=== PATIENT | female | born 1985 | race Caucasian/White ===

== ENCOUNTER → 2024-03-13 12:01 | Outpatient (REF) | payer BC, SELFPAY ==
[2024-03-13 09:28] LABS: % Eosinophils 6.5 % (0-6); % Immature Granulocytes 0.3 % (0-0.5); % Lymphocytes 36.5 % (20.5-51.1); % Monocytes 3.8 % (1.7-9.3); % Neutrophils 51.9 % (42.2-75.2); Absolute Basophils 0.1 10^3/uL (0-0.2); Absolute Eosinophils 0.5 10^3/uL (0-0.7); Absolute Lymphocytes 2.6 10^3/uL (1.2-3.4); Absolute Monocytes 0.3 10^3/uL (0.1-0.6); Absolute Neutrophils 3.7 10^3/uL (1.4-6.5); Hematocrit 33.4 % (37.0-47.0); Hemoglobin 9.9 g/dL (12.0-16.0); Mean Corp Hgb Conc. 29.6 g/dL (33.0-37.0); Mean Corpuscular Hgb 20.7 pg (27.0-31.0); Mean Corpuscular Volume 69.9 fL (81.0-99.0); Mean Platelet Volume 10.2 fL (7.4-10.4); Nucleated Red Blood Cells % 0 %; Platelet Count 300 10^3/uL (130-400); Red Blood Cell Count 4.78 10^6/uL (4.20-5.40); Red Cell Dist. Width 18.7 % (11.5-14.5); White Blood Cell Count 7.1 10^3/uL (4.8-10.8)
== END ==
LOC: OIDL 12:01
PROVIDERS: ATTENDING PHYSICIAN Internal Medicine Hematology & Oncology
DX: D50.9 Iron deficiency anemia, unspecified (principal)
CPT/HCPCS: 85025

== ENCOUNTER → 2024-03-20 15:46 | Outpatient (REF) | payer BC, SELFPAY ==
[2024-03-20 09:43] LABS: % Basophils 1.1 % (0-2); % Eosinophils 5.9 % (0-6); % Immature Granulocytes 0.1 % (0-0.5); % Lymphocytes 35.2 % (20.5-51.1); % Neutrophils 53.7 % (42.2-75.2); Absolute Basophils 0.1 10^3/uL (0-0.2); Absolute Eosinophils 0.4 10^3/uL (0-0.7); Absolute Lymphocytes 2.6 10^3/uL (1.2-3.4); Absolute Monocytes 0.3 10^3/uL (0.1-0.6); Hematocrit 34.4 % (37.0-47.0); Hemoglobin 10.1 g/dL (12.0-16.0); Mean Corp Hgb Conc. 29.4 g/dL (33.0-37.0); Mean Corpuscular Hgb 21.4 pg (27.0-31.0); Mean Corpuscular Volume 72.7 fL (81.0-99.0); Mean Platelet Volume 10.9 fL (7.4-10.4); Nucleated Red Blood Cells % 0 %; Platelet Count 254 10^3/uL (130-400); Red Blood Cell Count 4.73 10^6/uL (4.20-5.40); Red Cell Dist. Width 21.2 % (11.5-14.5); White Blood Cell Count 7.5 10^3/uL (4.8-10.8)
[2024-03-20 09:52] LABS: Phosphorus 1.9 mg/dl (2.5-4.5)
== END ==
LOC: OIDL 15:46
PROVIDERS: ATTENDING PHYSICIAN Internal Medicine Hematology & Oncology
DX: D50.9 Iron deficiency anemia, unspecified (principal)
CPT/HCPCS: 84100; 85025

== ENCOUNTER 2024-04-26 05:47 | Emergency (ER) | payer BC, SELFPAY ==
[2024-04-26 05:50] VITALS: BP 116/88
--- NOTE | 2024-04-26 08:56 | ED.GENMED ---
History of Present Illness
General
Chief Complaint: Breathing Problem
Source: patient
Exam Limitations: none
Time Seen by Provider: 04/26/24 08:36
Nursing documentation reviewed up to this point in time: agreed with
Travel History
Have you had any contact with someone who has COVID-19?: No
Do you have any symptoms of coronavirus? Fever > 100 degrees, chills, cough, shortness of breath, sore throat, loss of taste or smell, muscle aches, or headache?: Yes
Symptoms:: wheezing
History of Present Illness
History of Present Illness:
38-year-old female with a past medical history of asthma who presents to the emergency room for evaluation of cough and shortness of breath, wheezing. Patient reports onset of symptoms last night and they have been constant since that time�she says
that this is typical for her usual asthma exacerbations and she believes triggers mild URI that she has been dealing with for the past day or 2. She says she has had some mild rhinorrhea and cough which progressed last night to worsening cough,
wheezing, shortness of breath. She denies any fevers or chills. She denies any chest pain. She denies any GI issues. She denies any other complaints. She did use her home albuterol treatments which did not seem to be helping which prompted her
to come to the emergency room. She denies history of admission for her asthma.
Review of Systems
Review of Systems
All Other Systems: ROS reviewed and negative except as documented in HPI and ROS
Constitutional: Denies fever or chills
EENT: Reports runny nose; Denies sore throat
Respiratory: Reports cough and trouble breathing
Cardiac: Denies chest pain or palpitations
ABD/GI: Denies abdominal pain, nausea, vomiting or diarrhea
: Denies flank pain
Musculoskeletal: Denies neck pain or back pain
Neurological: Denies dizzy or headache
Phy Exam
Physical Exam
Physical Exam:
General: Awake, alert, oriented x3; no acute distress
Head: Normocephalic, atraumatic
Eyes: Conjunctiva normal
Throat: Airway intact, handling secretions
Neck: Trachea midline, supple without meningismus
Lungs: Hacking cough, diffuse expiratory wheezing; mild tachypnea, normal pulse ox, no increased work of breathing
Heart: Tachycardia with regular rhythm, no murmurs, gallops, or rubs
Abd: Soft, non distended, nontender
Neuro: No gross deficits
Skin: no rash
Extremities: No edema in extremities, equal pulses in all extremities
Scores
Heart Failure Risk
Heart Failure Risk Score: Not Applicable
Heart Score for Chest Pain Patients
STEMI patient?: Not applicable
Withdrawal Assessment of Alcohol
Withdrawal Assessment Completed?: Not applicable
Course
Orders/Labs/Results
Orders:
Orders
04/26/24 08:28
CR Chest - 2 Views Urgent
Comment:
Reason For Exam: SOB
04/26/24 08:43
Ipratropium/Albuterol Sulfate [Duoneb] 3 ml INH R NOW STA
MethylPREDNISolone PF [Solu-Medrol Pf] 125 mg IV NOW STA
Test Result ONCE
04/26/24 09:11
COVID-19 Antigen Urgent
Source: Nasal Swab
Influenza A+B Rapid Molecular Urgent
JONAS Source: Nasal Swab
Specimen Description:
04/26/24 09:17
Basic Metabolic Panel Urgent
Complete Blood Count/With Diff Urgent
HCG, Serum Qualitative Screen Urgent
Abnormal Lab Results
04/26/24
09:17
MCV 79.8 L fL
(81.0-99.0)
MCH 26.9 L pg
(27.0-31.0)
RDW 22.4 H %
(11.5-14.5)
MPV 10.9 H fL
(7.4-10.4)
Lymphocytes % 18.7 L %
(20.5-51.1)
Eosinophils % 7.8 H %
(0-6)
Creatinine 0.5 L mg/dL
(0.6-1.0)
Glucose 100 H mg/dl
(70-99)
04/26/24 09:17
04/26/24 09:17
Vital Signs
Initial and Last Documented VS:
Initial Vital Signs
Temp Pulse BP Pulse Ox
36.8 C 111 116/88 100
04/26/24 05:50 04/26/24 05:50 04/26/24 05:50 04/26/24 05:50
Last Documented Vital Signs
Temp Pulse Resp BP Pulse Ox
36.8 C 76 18 111/71 97
04/26/24 05:50 04/26/24 09:31 04/26/24 09:31 04/26/24 09:30 04/26/24 09:31
MDM/Problems Addressed
Differential Diagnosis Includes:
Asthma exacerbation, pneumonia, bronchitis
MDM/Problems Addressed:
38-year-old female presents for evaluation of worsening cough and wheezing in the setting of mild URI symptoms for the past 48 hours�symptoms worsening overnight. Consistent with prior asthma exacerbations. Refractory to home albuterol.
Tachycardic and tachypneic on arrival but normal pulse ox. Physical exam as above. Will check basic labs, chest x-ray rule out pneumonia. Will treat with IV steroid and DuoNeb. Will reassess after the above.
Labs reviewed: CBC and CMP no clinically significant abnormalities. COVID and flu negative. Chest x-ray reviewed by me shows no pneumonia. Clinical reassessment patient no longer with coughing only faint scattered wheezing on lung auscultation.
Reports significant subjective improvement. I think she is stable for discharge on course of outpatient antibiotics. Provided refill for albuterol nebulizers. She will follow-up with her primary care physician. She feels comfortable with this
plan. We spoke about return precautions and all questions were answered.
Chronic conditions affecting care:
Asthma
*Radiology
Radiology exam reviewed: preliminary read by ED provider and radiology read reviewed
*Pulse Oximetry
Patient hypoxic: no
*Critical Care Note
Total Time (30-74mins, 75-104mins- exclusive of procedures): Not Applicable
Data Reviewed
Source: patient and records
ED Attending Note
-
Portions of this chart may have been created with voice recognition software.� Occasional wrong word or��sound alike� substitutions may have occurred due to the inherent limitations of voice recognition software.
Discharge Plan
Departure
Patient Disposition: Home (Routine Discharge)
Date of Disposition: 04/26/24
Time of Disposition: 10:15
Patient with high blood pressure during this ER visit?: No
Discharge Problem:
Asthma exacerbation
Instructions: Asthma, Adult (DC)
Prescriptions:
New
prednisone 50 mg tablet
50 mg PO DAILY Qty: 5 0RF
albuterol sulfate 2.5 mg /3 mL (0.083 %) solution for nebulization
2.5 mg inhalation Q6H Qty: 180 0RF
No Action
Advair 500 mcg/50 mcg
1 puff PUFF DAILY
Albuterol
1 puff PUFF Q6HPRN PRN (Reason: sob)
Vitamin Tablet
1 tab PO DAILY
Zyrtec
1 tab PO DAILYPRN PRN (Reason: ALLERGIES)
acetaminophen 325 MG tablet
650 mg PO Q4HPRN PRN (Reason: mild pain) 0RF
sennosides-docusate sodium 1 TABLET tablet
1 tab PO DAILYPRN PRN (Reason: constipation) Qty: 30 0RF
ibuprofen 600 MG tablet
600 mg PO Q6HPRN PRN (Reason: cramps) Qty: 60 0RF
Referrals:
Daniella Ngo MD [Family Provider] - Follow up in 2-3 days
Activity Restrictions/Additional Instructions:
Thank you for visiting the Emergency Department at [facility].
1. Please schedule a follow up appointment as directed. Call first thing tomorrow morning to make an appointment.
2. If indicated, please take your medications as instructed and indicated on discharge paperwork.
3. If any of your symptoms do not improve, or persist, or become more severe within 6-12 hours, please return to the emergency department for further care.
4. Please return to the emergency department if you develop a headache, neck pain/stiffness, fever greater than 100.4F, chest pain, shortness of breath, persistent nausea, vomiting, slurred speech, difficulty walking, numbness/tingling, weakness,
signs of infection or any other symptoms that are worrisome to you.
Please call [phone] if you have any questions.
Interventions
Interventions:
*General Assessment Last Done: 04/26/24 09:35
*Neglect/Abuse Screening Last Done: 04/26/24 09:35
*ED COVID-19 Vaccine History Last Done: 04/26/24 09:35
ED- Cardiac Assessment Last Done: 04/26/24 09:35
ED- Pulmonary Assessment Last Done: 04/26/24 09:35
Discharge Date and Time
Print Language: [place]
[2024-04-26 09:30] VITALS: BP 111/71
[2024-04-26] MEDS: SOLU-MEDROL PF 125 MG IV (09:31)
[2024-04-26] MEDS: DUONEB 3 ML INH (09:32)
[2024-04-26 09:38] LABS: % Basophils 0.6 % (0-2); % Eosinophils 7.8 % (0-6); % Immature Granulocytes 0.3 % (0-0.5); % Lymphocytes 18.7 % (20.5-51.1); % Monocytes 5.3 % (1.7-9.3); % Neutrophils 67.3 % (42.2-75.2); Absolute Basophils 0.1 10^3/uL (0-0.2); Absolute Eosinophils 0.7 10^3/uL (0-0.7); Absolute Lymphocytes 1.6 10^3/uL (1.2-3.4); Absolute Monocytes 0.5 10^3/uL (0.1-0.6); Absolute Neutrophils 5.9 10^3/uL (1.4-6.5); Hematocrit 38.6 % (37.0-47.0); Mean Corp Hgb Conc. 33.7 g/dL (33.0-37.0); Mean Corpuscular Hgb 26.9 pg (27.0-31.0); Mean Corpuscular Volume 79.8 fL (81.0-99.0); Mean Platelet Volume 10.9 fL (7.4-10.4); Nucleated Red Blood Cells % 0 %; Platelet Count 189 10^3/uL (130-400); Red Blood Cell Count 4.84 10^6/uL (4.20-5.40); Red Cell Dist. Width 22.4 % (11.5-14.5); White Blood Cell Count 8.8 10^3/uL (4.8-10.8)
[2024-04-26 09:48] LABS: HCG, Serum Qualitative Screen Negative
[2024-04-26 09:56] LABS: Blood Urea Nitrogen 11 mg/dl (7-17); Carbon Dioxide 25 mmol/L (22-30); Chloride 104 mmol/L (98-107); Glucose 100 mg/dl (70-99); Potassium 3.7 mmol/L (3.5-5.1); Sodium 139 mmol/L (135-145); eGFR > 60.00
[2024-04-26 10:00] VITALS: BP 109/70
[2024-04-26 10:04] LABS: COVID-19 Antigen Negative (Negative)
[2024-04-26 10:40] LABS: Anisocytosis 1+; Hypochromasia 2+; Normal RBC Morphology No; Ovalocytes 1+; Polychromasia 1+
== END 2024-04-26 10:39 | disposition home or self-care (01) ==
LOC: EMR 05:47
PROVIDERS: EMERGENCY PHYSICIAN Emergency Medicine; FAMILY PHYSICIAN Family Medicine
DX: J45.901 Unspecified asthma with (acute) exacerbation (principal)
CPT/HCPCS: 99283; 94640; 96374; 71046; 80048; 84703; 85025; 87502; 87811

== ENCOUNTER → 2025-10-17 13:40 | Outpatient (REF) | payer BC, SELFPAY | LOC: PNTC 13:40 | PROVIDERS: ATTENDING PHYSICIAN Obstetrics & Gynecology | DX: O09.522 Supervision of elderly multigravida, second trimester (principal); O99.212 Obesity complicating pregnancy, second trimester; O09.822 Supervision of pregnancy with history of in utero procedure during previous pregnancy, second trimester | CPT/HCPCS: 76805 ==

== ENCOUNTER → 2025-11-14 10:01 | Outpatient (REF) | payer BC, SELFPAY | LOC: PNTC 10:01 | PROVIDERS: ATTENDING PHYSICIAN Obstetrics & Gynecology | DX: O09.522 Supervision of elderly multigravida, second trimester (principal); O99.213 Obesity complicating pregnancy, third trimester; O09.822 Supervision of pregnancy with history of in utero procedure during previous pregnancy, second trimester; Z36.86 Encounter for antenatal screening for cervical length; Z36.3 Encounter for antenatal screening for malformations | CPT/HCPCS: 76811; 76817 ==